=== PATIENT | male | born 1940 | race Caucasian/White ===

== ENCOUNTER 2020-10-29 09:53 | Outpatient (CLI) | payer MEDICARE | END 2020-10-29 09:54 | disposition home or self-care (01) | LOC: LAB.S 09:53 | PROVIDERS: ATTEND Urology | DX: Z85.46 Personal history of malignant neoplasm of prostate (principal) | CPT/HCPCS: 36415; 84153 ==

== ENCOUNTER 2021-06-04 15:59 | Outpatient (CLI) | payer MEDICARE ==
--- NOTE | 2021-06-04 16:20 | XRAY Report ---
PROCEDURE: Knee 3 View RT INDICATIONS: PAIN IN RIGHT KNEE JOINT TECHNIQUE: 3 views of the right knee(s) were acquired. COMPARISON: None. FINDINGS: Bones: No fractures or dislocations. No suspicious bony lesions. Mild tricompartmental periareolar articular osteophyte formation. Soft tissues: Moderate joint effusion. No suspicious soft tissue calcifications. IMPRESSION: 1. Osteoarthritis. 2. Knee joint effusion. 3. No acute fracture. No osseous lesion. If symptoms and/or clinical suspicion for pathology continue , further assessment with repeat plain films, or advanced imaging (e.g., CT, MRI, or bone scan) is re commended for further assessment. Reviewed by: Daniel Still MD on 06/04/2021 4:19 PM PDT Approved by: Daniel Still MD on 06/04/2021 4:19 PM PDT Station ID: [id number]
== END 2021-06-04 16:00 | disposition home or self-care (01) ==
LOC: DI.S 15:59
PROVIDERS: ATTEND Nurse Practitioner Family
DX: M17.11 Unilateral primary osteoarthritis, right knee (principal); M25.461 Effusion, right knee

== ENCOUNTER 2021-07-08 11:15 | Outpatient (CLI) | payer MEDICARE ==
--- NOTE | 2021-07-08 16:00 | XRAY Report ---
PROCEDURE: Knee 3 View RT INDICATIONS: RIGHT KNEE PAIN TECHNIQUE: 3 views of the right knee(s) and one view of the left knee were acquired. COMPARISON: 06/04/2021 FINDINGS: Bones: No fractures or dislocations. Bilateral medial compartment joint space loss, right worse than left. No suspicious bony lesions. Soft tissues: Small joint effusion. No suspicious soft tissue calcifications. IMPRESSION: 1. No visible fractures. 2. Small joint effusion is present which may indicate internal drainage patent. 3. Medial compartment osteoarthritic changes bilaterally. Reviewed by: Violeta Chandler MD on 07/08/2021 3:59 PM PDT Approved by: Violeta Chandler MD on 07/08/2021 3:59 PM PDT Station ID: [id number]
== END 2021-07-08 23:59 | disposition home or self-care (01) ==
LOC: DI.WOS 11:15
PROVIDERS: ATTEND Physician Assistant
DX: M25.461 Effusion, right knee (principal); M17.0 Bilateral primary osteoarthritis of knee

== ENCOUNTER 2022-05-21 09:19 | Outpatient (CLI) | payer MEDICARE | END 2022-05-21 09:20 | disposition home or self-care (01) | LOC: DI 09:19 | PROVIDERS: ATTEND Internal Medicine Cardiovascular Disease | DX: I42.9 Cardiomyopathy, unspecified (principal); I51.7 Cardiomegaly; I34.0 Nonrheumatic mitral (valve) insufficiency; I77.810 Thoracic aortic ectasia | CPT/HCPCS: 93306 ==

== ENCOUNTER 2022-11-10 07:21 | Outpatient (CLI) | payer MEDICARE ==
[2022-11-10 07:34] LABS: BASOPHILS # (AUTO) 0.1 10^3/uL (0.0-0.1); BASOPHILS % (AUTO) 1.2 %; EOSINOPHILS # (AUTO) 0.4 10^3/uL (0.0-0.7); EOSINOPHILS % (AUTO) 6.9 %; HCT - HEMATOCRIT 38.6 % (42.0-52.0); HGB - HEMOGLOBIN 13.1 g/dL (14.0-18.0); LYMPHOCYTES # (AUTO) 1.3 10^3/uL (1.5-3.5); LYMPHOCYTES % (AUTO) 24.1 %; MEAN CORPUSCULAR HEMOGLOBIN 33.6 pg (27.0-31.0); MEAN CORPUSCULAR HGB CONC 33.9 g/dL (32.0-36.0); MEAN PLATELET VOLUME 9.6 fL (7.4-11.4); MONOCYTES # (AUTO) 0.8 10^3/uL (0.0-1.0); MONOCYTES % (AUTO) 14.6 %; NEUTROPHILS # (AUTO) 2.7 10^3/uL (1.5-6.6); NEUTROPHILS % (AUTO) 52.4 %; PLT - PLATELET COUNT 202 10^3/uL (130-450); WHITE BLOOD COUNT 5.2 x10^3/uL (4.8-10.8)
[2022-11-10 07:47] LABS: ALBUMIN 4.1 g/dL (3.2-5.5); ALBUMIN/GLOBULIN RATIO 1.4 (1.0-2.2); BILIRUBIN,TOTAL 0.5 mg/dL (0.2-1.0); CALCIUM 9.3 mg/dL (8.5-10.3); CREATININE 0.8 mg/dL (0.6-1.3); POTASSIUM 3.7 mmol/L (3.5-4.5)
[2022-11-10 08:08] LABS: FERRITIN 52.8 ng/mL (23.9-336.2)
== END 2022-11-10 07:22 | disposition home or self-care (01) ==
LOC: LAB 07:21
PROVIDERS: ATTEND Internal Medicine
DX: E83.110 Hereditary hemochromatosis (principal); R76.8 Other specified abnormal immunological findings in serum
CPT/HCPCS: 36415; 80053; 82105; 82728; 83540; 84466; 85025

== ENCOUNTER 2023-03-11 06:53 | Outpatient (CLI) | payer MEDICARE ==
--- NOTE | 2023-03-11 10:44 | Ultrasound Report ---
PROCEDURE: Duplex Aorta Complete INDICATIONS: ABD WALL HERNIA, PULSATILE ABD MASS TECHNIQUE: Color and pulse Doppler interrogation was performed of the aorta and iliac arterial systems, with tod ge documentation. COMPARISON: CT abdomen and pelvis dated 12/17/2020. FINDINGS: Aorta Proximal: 94 cm/sec, with monophasic flow. Aorta Mid: 91 cm/sec, with monophasic flow. Aorta Distal: 97 cm/sec, with monophasic flow. Right lower extremity: Proximal common iliac artery: 71cm/sec, with triphasic flow. Distal common iliac artery: 129 cm/sec, with biphasic flow. Proximal external iliac artery: 28 cm/sec, with biphasic flow. Distal external iliac artery: 71 cm/sec, with biphasic flow. Common femoral artery: 49 cm/sec, with biphasic flow. [place]ujica-scale imaging description: Calcified plaque. No hemodynamically significant stenosis identified . Left lower extremity: Proximal common iliac artery: 61 cm/sec, with triphasic flow. Distal common iliac artery: 153 cm/sec, with biphasic flow. Proximal external iliac artery: 42 cm/sec, with monophasic flow. Distal external iliac artery: 68 cm/sec, with monophasic flow. Common femoral artery: 59 cm/sec, with biphasic flow. [place]ujica-scale imaging description: Diffuse plaque. Velocity changes suggest a hemodynamically significa nt stenosis of the left common iliac artery. IMPRESSION: 1. Diffuse atherosclerotic calcifications. 2. Velocity changes in the left common iliac suggest probable hemodynamically significant focal steno sis. 3. No aneurysms identified. Reviewed by: Asael Mistry MD on 03/11/2023 10:43 AM [facility] Approved by: Asael Mistry MD on 03/11/2023 10:43 AM PST Station ID: [id number]
--- NOTE | 2023-03-11 14:48 | Ultrasound Report ---
PROCEDURE: Abdomen Limited INDICATIONS: ABD WALL HERNIA, PULSATILE ABD MASS TECHNIQUE: Real-time focused scanning was performed of the abdomen, with image documentation. COMPARISONS: None. FINDINGS: There is an anterior abdominal wall defect measuring approximately 6.9 cm, either indicating a very l arge ventral hernia or an area of abdominal wall diastases. It contains contents which are likely gas containing bowel. Incidental note is made of the presence of a benign left lobe liver cyst measuring 4.5 cm in maximum diameter. IMPRESSION: Midline anterior abdominal wall hernia versus diastases. Bowel-containing structure appears to extend through the defect. Consider confirmation utilizing CT. Reviewed by: Asael Mistry MD on 03/11/2023 2:47 PM PST Approved by: Asael Mistry MD on 03/11/2023 2:47 PM PST Station ID: [id number]
== END 2023-03-11 06:54 | disposition home or self-care (01) ==
LOC: DI 06:53
PROVIDERS: ATTEND Nurse Practitioner Acute Care
DX: K46.9 Unspecified abdominal hernia without obstruction or gangrene (principal); R19.00 Intra-abdominal and pelvic swelling, mass and lump, unspecified site; I70.202 Unspecified atherosclerosis of native arteries of extremities, left leg; I70.201 Unspecified atherosclerosis of native arteries of extremities, right leg
CPT/HCPCS: 93978

== ENCOUNTER 2023-05-17 06:45 | Outpatient (CLI) | payer MEDICARE ==
[2023-05-17] MEDS ORDERED: iohexoL-300 100 ML VIAL ONE (06:48)
[2023-05-17] MEDS ORDERED: DIATRIZOATE MEGLU/DIATRIZO SOD 30 ML BOTTLE PO ONE (06:49)
--- NOTE | 2023-05-17 09:42 | CT Report ---
PROCEDURE: Abdomen/Pelvis W INDICATIONS: ABD WALL HERNIA CONTRAST: Omni 300 100ml TECHNIQUE: After the administration of intravenous contrast, a CT scan of the abdomen and pelvis was performed. Images were recorded and evaluated at appropriate window settings. Reformats: coronal and sagittal. F or radiation dose reduction, the following was used: automated exposure control, adjustment of mA and /or kV according to patient size. COMPARISON: Abdomen and pelvis dated 12/17/2020. FINDINGS: Image quality: Diagnostic. Lower chest: Unremarkable. Liver: New 4 x 5 cm cystic lesion with simple fluid density of the segment IVb liver, not seen on tana or study. Gallbladder and biliary tree: No calcified stones Spleen: No splenomegaly. Pancreas: No pancreatic ductal dilation. Adrenals: No adrenal nodule. Kidneys and ureters: No hydronephrosis. No renal cystic lesion which requires follow up. No solid mas s. Stomach, bowel and peritoneum: No bowel distension. No pathologic free fluid. Nonvisualized appendix. No secondary signs of appendicitis. Lymph nodes: No central or retroperitoneal adenopathy. Vessels: No infrarenal aortic aneurysm. PELVIS Reproductive organs: Penile implant. Nonvisualized prostate. Surgical clips in the region of the semi nal vesicles. Surgical clips in the region of the bilateral inguinal canals, anterior to the bladder with adjacent scarring. Bladder: No abnormal wall thickening, accounting for underdistention. Pelvic lymph nodes: No pelvic adenopathy by size criteria. 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 Other: Several fat-containing umbilical hernia. No medication inguinal hernia seen noting surgical ch anges in the bilateral inguinal region.. IMPRESSION: 1. Tiny fat-containing umbilical hernia 2. No significant inguinal hernia. 3. Surgical changes in the bilateral inguinal region, anterior to bladder and prostate; correlate wit h prior surgical history. Renal scar tissue anterior to the bladder. The patient history of neoplasia , metastasis/recurrence cannot be excluded. If indicated, follow-up CT in 3-6 months may provide heidi tional diagnostic benefit. 4. New simple fluid appearing 5 cm cystic lesion of the liver 4B segment of liver. Recommend follow-u p. Reviewed by: Fede Mccabe MD on 05/17/2023 9:40 AM PST Approved by: Fede Mccabe MD on 05/17/2023 9:40 AM PST Station ID: [id number]
[2023-05-17] MEDS: DIATRIZOATE MEGLU/DIATRIZO SOD 30 ML BOTTLE PO ONE (15:32)
[2023-05-17] MEDS: iohexoL-300 100 ML VIAL IVP ONE (15:32)
== END 2023-05-17 06:46 | disposition home or self-care (01) ==
LOC: LAB 06:45
PROVIDERS: ATTEND Registered Nurse
DX: R19.00 Intra-abdominal and pelvic swelling, mass and lump, unspecified site (principal); K46.9 Unspecified abdominal hernia without obstruction or gangrene; K42.9 Umbilical hernia without obstruction or gangrene; R93.2 Abnormal findings on diagnostic imaging of liver and biliary tract
CPT/HCPCS: 36415; 74177; 82565; Q9963; Q9967

== ENCOUNTER 2023-07-16 09:46 | Outpatient (CLI) | payer MEDICARE ==
[2023-07-16] MEDS ORDERED: iohexoL-300 100 ML VIAL ONE (10:10)
[2023-07-16] MEDS ORDERED: DIATRIZOATE MEGLU/DIATRIZO SOD 30 ML BOTTLE PO ONE (10:10)
[2023-07-16] MEDS: iohexoL-300 100 ML VIAL IVP ONE (14:13)
[2023-07-16] MEDS: DIATRIZOATE MEGLU/DIATRIZO SOD 30 ML BOTTLE PO ONE (14:13)
--- NOTE | 2023-07-16 16:08 | CT Report ---
PROCEDURE: Abdomen/Pelvis W INDICATIONS: RENAL SCARRING CONTRAST: 100ml omni 300 TECHNIQUE: After the administration of intravenous contrast, a CT scan of the abdomen and pelvis was performed. Images were recorded and evaluated at appropriate window settings. Reformats: coronal and sagittal. F or radiation dose reduction, the following was used: automated exposure control, adjustment of mA and /or kV according to patient size. COMPARISON: CT 05/17/2023. FINDINGS: Image quality: Diagnostic. Lower chest: Cardiomegaly. Aortic valve calcifications. Liver: No solid mass. Stable hepatic cysts without internal complexity. Additional subcentimeter hypo attenuating lesions are present, too small to characterize by CT, but probably small cysts. Gallbladder and biliary tree: No radiopaque stones or wall thickening. No biliary dilation. Spleen: No splenomegaly. Pancreas: No pancreatic ductal dilation. Adrenals: No adrenal nodule. Kidneys and ureters: No hydronephrosis. No renal cystic lesion which requires follow up. No solid mas s. Stomach, bowel and peritoneum: No bowel distension. No pathologic free fluid. Lymph nodes: No central or retroperitoneal adenopathy. Vessels: No infrarenal aortic aneurysm. PELVIS Reproductive organs: Prostatectomy. Penile prosthesis reservoir in the right lower quadrant. Bladder: No abnormal wall thickening, accounting for underdistention. Pelvic lymph nodes: No pelvic adenopathy by size criteria. Bones: No aggressive osseous abnormality. Degenerative disc disease, predominantly of the lumbar spin e. Other: Bilateral inguinal hernia repairs. Stable fat within the left inguinal canal. Small umbilical hernia containing fat. IMPRESSION: Expected postoperative changes of a prostatectomy, with mild scarring in the surgical bed. No evidenc e of local recurrence or luci disease. Stable liver cysts, which are benign. Reviewed by: Hesham Pederson MD on 07/16/2023 4:06 PM PDT Approved by: Hesham Pederson MD on 07/16/2023 4:06 PM PDT Station ID: [id number]
== END 2023-07-16 09:47 | disposition home or self-care (01) ==
LOC: LAB 09:46 → DI 09:47
PROVIDERS: ATTEND Nurse Practitioner Acute Care
DX: N28.89 Other specified disorders of kidney and ureter (principal)
CPT/HCPCS: 36415; 74177; 82565; Q9963; Q9967

== ENCOUNTER 2023-07-23 07:17 | Outpatient (CLI) | payer MEDICARE ==
[2023-07-23 07:34] LABS: BASOPHILS # (AUTO) 0.1 10^3/uL (0.0-0.1); BASOPHILS % (AUTO) 0.8 %; EOSINOPHILS # (AUTO) 0.3 10^3/uL (0.0-0.7); EOSINOPHILS % (AUTO) 4.1 %; HGB - HEMOGLOBIN 14.4 g/dL (14.0-18.0); LYMPHOCYTES # (AUTO) 1.1 10^3/uL (1.5-3.5); LYMPHOCYTES % (AUTO) 16.7 %; MEAN CORPUSCULAR HEMOGLOBIN 32.7 pg (27.0-31.0); MEAN CORPUSCULAR HGB CONC 33.5 g/dL (32.0-36.0); MEAN CORPUSCULAR VOLUME 97.5 fL (80.0-94.0); MEAN PLATELET VOLUME 10.4 fL (7.4-11.4); MONOCYTES % (AUTO) 15.2 %; NEUTROPHILS % (AUTO) 62.6 %; PLT - PLATELET COUNT 218 10^3/uL (130-450); RED BLOOD COUNT 4.41 10^6/uL (4.70-6.10); RED CELL DISTRIBUTION WIDTH 13.8 % (12.0-15.0); WHITE BLOOD COUNT 6.4 x10^3/uL (4.8-10.8)
[2023-07-23 07:49] LABS: ALBUMIN 4.3 g/dL (3.2-5.5); ALBUMIN/GLOBULIN RATIO 1.3 (1.0-2.2); ALKALINE PHOSPHATASE 69 IU/L (42-121); ALT ALANINE AMINOTRANSFERASE 14 IU/L (10-60); AST ASPARTATE AMINOTRANSFERASE 17 IU/L (10-42); BILIRUBIN,TOTAL 0.8 mg/dL (0.2-1.0); BUN - BLOOD UREA NITROGEN 14 mg/dL (6-20); CALCIUM 9.5 mg/dL (8.5-10.3); CARBON DIOXIDE - CO2 28 mmol/L (21-32); CHLORIDE 102 mmol/L (101-111); CHOL/HDL RATIO 1.9 (<5.0); CHOLESTEROL 158 mg/dL; GFR - MDRD 72 (>89); GLUCOSE 100 mg/dL (74-104); HDL CHOLESTEROL 85 mg/dL; LDL CHOLESTEROL,CALCULATED 60 mg/dL; LDL/HDL RATIO 0.7 (<3.6); POTASSIUM 3.9 mmol/L (3.5-4.5); SODIUM 137 mmol/L (135-145); TOTAL PROTEIN 7.5 g/dL (6.4-8.9); TRIGLYCERIDES 66 mg/dL (48-352); VLDL CHOLESTEROL 13 mg/dL
== END 2023-07-23 07:18 | disposition home or self-care (01) ==
LOC: LAB 07:17
PROVIDERS: ATTEND Nurse Practitioner Acute Care
DX: I49.9 Cardiac arrhythmia, unspecified (principal); Z13.228 Encounter for screening for other metabolic disorders; Z13.220 Encounter for screening for lipoid disorders; Z13.29 Encounter for screening for other suspected endocrine disorder; Z13.0 Encounter for screening for diseases of the blood and blood-forming organs and certain disorders involving the immune mechanism
CPT/HCPCS: 36415; 80053; 80061; 83721; 83735; 84443; 85025